=== PATIENT | female | born 1985 | race Two or more races ===

== ENCOUNTER 2024-12-15 19:05 | Emergency (ER) | payer MEDICARE, SELFPAY ==
[2024-12-15 19:27] VITALS: BP 132/67; PULSE 74; RESP 20; TEMP 36.1; O2SAT 100; BMI 41.9
--- NOTE | 2024-12-15 19:28 | ED_ITS ---
HPI - General Adult General Chief complaint: Abdominal Pain Stated complaint: cramping, 3rd trimester of preg, blood in placenta Time Seen by Provider: 12/16/24 00:19 Source: patient Mode of arrival: ambulatory Limitations: no limitations History of Present Illness ED Provider: Dr. Wilton Wayne HPI narrative: 39-year-old female , 11 weeks 3 days based on LMP 09/27/2024 with a past medical history of multiple pulmonary emboli on chronic Lovenox therapy, asthma, hypothyroidism, liver/kidney failure at the end of her last July 2023 requiring at 37 weeks, Rh negative blood type who presents emergency department for evaluation of constant, 01/15, left lower abdominal cramping x2 days associated with nausea but no vomiting. The patient lives in [place] she is in his area for proximally 1 week. She states that 2 weeks ago she developed similar cramping and was seen at a hospital in [place]. She had an ultrasound which revealed a single intrauterine with ?bleeding around the ?. The patient is Rh negative and she states she had 2 doses of RhoGAM IM. She denied fever, chills, lightheadedness, dizziness. She denied vaginal bleeding or vaginal discharge. She denied urinary frequency, urgency or dysuria. Related Data Allergies Allergy/AdvReac Type Severity Reaction Status Date / Time diphenhydramine (From Allergy Agitated Verified 12/15/24 19:31 Benadryl) ketorolac Allergy Abdominal Verified 12/15/24 19:31 Pain Seafood AdvReac Severe SEVERE Uncoded 01/23/20 15:24 NAUSEA WITH ANY KIND OF SEAFOOD Review of Systems 2 Review of Systems: Yes all other systems are reviewed and are negative PMFSH Past Medical History [facility] Narrative: Social history: She lives in [place]. 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 She states that she is going to be in this area for proximally 1 week. She vapes tobacco products. She denies alcohol use. She denies drug use. Social History Social History Advance Directives: No Advance Directives Information Provided: No Do you have a plan to hurt others: No Plan Physical Exam ED Vital Signs: Vital Signs - 24 hr 12/15/24 19:27 12/16/24 01:18 Temperature 96.9 F 97.9 F Pulse Rate 74 66 Respiratory Rate 20 16 Blood Pressure 132/67 112/52 L Pulse Oximetry 100 100 Oxygen Delivery Method Room Air Room Air BMI result Body Mass Index 41.9 Vital signs were normal Exam: General: Awake, alert in no distress, weight 110.8 kg. Elevated BMI 41.9 kg per m2 Head: Normocephalic, atraumatic EENT: PERRL, Lids normal, sclera normal, conjunctiva normal, nose normal , ears normal, throat without erythema or exudates Neck: Supple, no adenopathy Lung: breath sounds symmetric, no wheezing, rales or rhonchi Chest: symmetric movement, nontender Heart: regular rate and rhythm, normal S1, S2 no murmurs or rubs Abdomen: soft, obese, mild to moderate left lower quadrant tenderness, no rebound, normoactive bowel sounds: : Patient refused speculum exam Back: no vertebral tenderness, no CVAT Extremities: no deformities, moves all extremities symmetrically Neuro: Awake, alert, oriented, normal speech, cranial nerves intact, moves all extremities symmetrically Psych: Pleasant, cooperative Course Course Course Narrative: Rapid medical examination performed in triage by Eloisa Rider PA-C. Patient is a 39 year old assigned female at presenting to the emergency department with lower abdominal cramping / pain. Patient states that she is early into her 10th and is having abdominal pain. Detailed physical exam and review of systems are deferred to the vat packer. Labs ordered. Patient placed back in the waiting room pending room availability and results. Medical Decision Making Medical Decision Making MDM Narrative: 39-year-old female (1 TAB), 11 weeks 3 days based on LMP 09/27/2024 with a past medical history of multiple pulmonary emboli on chronic Lovenox therapy, asthma, hypothyroidism, liver/kidney failure at the end of her last July 2023 requiring at 37 weeks, Rh negative blood type who presents emergency department for evaluation of constant, 9/10, left lower abdominal cramping x2 days associated with nausea but no vomiting. The patient lives in [place] and she is in his area for proximally 1 week. She states that 2 weeks ago, she developed similar cramping and was seen at a hospital in [place]. She had an ultrasound which revealed a single intrauterine with ?bleeding around the ?. The patient is Rh negative and she states she had 2 doses of RhoGAM IM. She denied fever, chills, lightheadedness, dizziness. She denied vaginal bleeding or vaginal discharge. She denied urinary frequency, urgency or dysuria. Vital signs were normal. Exam revealed left lower quadrant tenderness otherwise was unremarkable. Patient refused speculum exam. Differential diagnosis: ?Includes but is not limited to threatened spontaneous , abdominal pain with , ectopic , anemia, electrolyte abnormalities Course: My independent interpretation patient's laboratory evaluation is as follows: WBC was normal 6600. Normal H&H of 12.4 and 38. Low platelet count 66,000. Chloride elevated 109. BUN low 17 with a normal creatinine. LFTs were normal. Quantitative beta-hCG was 90,523. An ectopic is unlikely, since the patient had an ultrasound 2 weeks prior in [place] that showed an intrauterine . At this time, I do not have ultrasound available for non-ectopic OB studies. We also do not have gynecology coverage. Therefore I contacted [facility] and did discuss the patient's presentation with the covering OBGYN Chief Resident. The Chief Resident did discuss the patient's presentation and low platelet count with their attending physician. In their opinion, the low platelet count was not related to the and since the was not viable they could not accept the patient in transfer to the OBGYN service. The chief resident felt that the patient required a medical workup to determine if the low platelet count was related to a hematologic condition versus heparin induced (Lovenox) thrombocytopenia. The [facility] transfer line did state that they could put the patient on a waiting list for a medical bed but it could take 1-2 days. Unfortunately, I could not keep this patient in the our emergency department given the possibility of a life threatening uterine bleed secondary to Lovenox and thrombocytopenia. I did discuss this with the patient and I offered to call [facility] to see if they could accept the patient in transfer. After a discussion with the patient and the patient's sister over the phone, the patient decided to leave the emergency department against medical advice and to seek care at [facility]. Admission/Observation Consideration of admission/observation: Escalation of care including admission/observation considered (Yes) Consult Healthcare Provider Management of the patient was discussed with: Signal Repairer ([facility] OBGYN chief resident) Lab Data MDM Lab Attestation statement: I reviewed the patient's lab results. 12/15/24 20:17 12/15/24 20:17 Labs: Lab Results 12/15/24 Range/Units 20:17 WBC 6.6 (4.8-10.8) X10*3/uL RBC 4.50 (4.20-5.50) X10*6/uL Hgb 12.4 (12.0-16.0) g/dl Hct 38.0 (37.0-47.0) % MCV 84.4 (80.0-98.0) fL MCH 27.6 (27.0-33.0) pg MCHC 32.6 (31.0-35.0) g/dl RDW 15.1 (11.0-16.0) % Plt Count 66 L (160-400) X10*3/uL MPV 9.7 (9.4-12.3) fL Immature Gran % (Auto) 0.2 (0.0-0.4) % Neut % (Auto) 67.2 (45-73) % Lymph % (Auto) 27.2 (20-40) % [place] % (Auto) 4.2 (2-11) % Eos % (Auto) 0.9 (0-4) % Baso % (Auto) 0.3 (0-2) % Lymph # (Auto) 1.8 (1.2-4.9) X10*3/uL [place] # (Auto) 0.3 (0.1-1.2) X10*3/uL Eos # (Auto) 0.1 (0.0-0.4) X10*3/uL Baso # (Auto) 0.0 (0.0-0.2) X10*3/uL Abs Immat Gran (auto) 0.01 (0.00-0.03) X10*3/uL Absolute Neuts (auto) 4.4 (2.0-8.3) x10*3/uL Absolute Nucleated RBC 0.000 (0.0-0.012) X10*3/uL Nucleated RBC % (auto) 0.0 (0.0-0.2) /100WBC Smear Tech's Comments VERIFIED Sodium 135 (135-145) mmol/L Potassium 4.0 (3.3-5.1) mmol/L Chloride 109 H (96-108) mmol/L Carbon Dioxide 17 L (22-29) mmol/L Anion Gap 13 (12-20) BUN 11 (9-16) mg/dL Creatinine 0.84 (0.5-1.4) mg/dL Estim Creat Clear Calc 107.3 Estimated GFR > 60 Random Glucose 86 (60-115) mg/dL Calcium 9.2 (8.4-10.2) mg/dL Magnesium 2.1 (1.6-2.6) mg/dL Total Bilirubin 0.2 (0.0-1.0) mg/dL AST 20 (5-31) U/L ALT 6 (0-31) U/L Alkaline Phosphatase 63 (39-117) U/L Total Protein 7.2 (6.5-8.0) g/dL Albumin 3.7 (3.5-5.0) g/dL Beta HCG, Quant 97903 mIU/mL Chronic Conditions Patient?s care impacted by: Other (Recurrent pulmonary emboli treated with Lovenox) Discharge Plan Discharge Clinical Impression: First trimester , Abdominal pain during intrauterine , Rh negative status during , Thrombocytopenia, Current use of anticoagulant therapy Patient Disposition: Left Against Medical Advice Additional Instructions: You told me that you had an OBGYN ultrasound 2 weeks prior in [place] and you were told that you had a single intrauterine with bleeding around the . You had a comprehensive metabolic panel which revealed no abnormalities in your kidney function or your liver tests. You also told me that your Rh negative in you receive to [facility] in [place]. Given these facts I do not think that you have an in your fallopian tubes (ectopic ) Your quantitative beta-hCG (blood test) was 90,523. You had a complete blood count which revealed a normal hematocrit and hemoglobin of 12.4 and 38.0. Your platelet count was low at 66,000. This has concerning and may be related to your , a hematologic condition or your Lovenox treatment for your recurrent pulmonary emboli. I did talk to the Gynecology Chief Resident at [facility] and they stated that your low platelet count was probably not related to the but they felt that you need a medical workup and a hematology workup to determine the cause of your low platelet count. [facility] does not have a medical bed at this time but the property coordinator stated that a bed may be available in 1-2 days. We are not able to keep you in our emergency department for that period of time. Therefore I need to transfuse 2 different hospital since we do not have gynecology coverage in her hospitalist will not admit patient's without gynecology coverage. I offered to call [facility] to see if they can accept you in transfer. After my discussion with you and your sister, you decided to leave [facility] and seek care at [facility] therefore you are being discharged against medical advice. Stand Alone Forms: Against Medical Advice Interventions: ED Discharge Assessment Last Done: 12/16/24 02:01 Discharge Date/Time: 12/16/24 02:02 Print Language: Sinhala
[2024-12-15 20:28] LABS: Hematocrit 38.0 % (37.0-47.0); Hemoglobin 12.4 g/dl (12.0-16.0); Imm Gran Abs Auto 0.01 X10*3/uL (0.00-0.03); Imm Gran Pct Auto 0.2 % (0.0-0.4); Lymphocytes Absolute Auto 1.8 X10*3/uL (1.2-4.9); MANUAL DIFF FLAG SCAN; Mean Corpuscular HGB Conc 32.6 g/dl (31.0-35.0); Mean Corpuscular Hemoglobin 27.6 pg (27.0-33.0); Mean Corpuscular Volume 84.4 fL (80.0-98.0); NRBC Abs Auto 0.000 X10*3/uL (0.0-0.012); NRBC Pct Auto 0.0 /100WBC (0.0-0.2); PLT CLUMP 1; Red Blood Count 4.50 X10*6/uL (4.20-5.50); SCAN SMEAR FLAG 1
[2024-12-15 21:01] LABS: Platelet Count 66 X10*3/uL (160-400); White Blood Count 6.6 X10*3/uL (4.8-10.8)
[2024-12-15 21:02] LABS: Alanine Aminotransferase 6 U/L (0-31); Albumin Level 3.7 g/dL (3.5-5.0); Alkaline Phosphatase 63 U/L (39-117); Anion Gap 13 (12-20); Aspartate Amino Transferase 20 U/L (5-31); Blood Urea Nitrogen 11 mg/dL (9-16); Calcium 9.2 mg/dL (8.4-10.2); Carbon Dioxide 17 mmol/L (22-29); Chloride 109 mmol/L (96-108); Creatinine Clr Calc Pharmacy 107.3; Estimated Glomerular Filt Rate > 60; Magnesium 2.1 mg/dL (1.6-2.6); Potassium 4.0 mmol/L (3.3-5.1); Sodium 135 mmol/L (135-145); Total Protein 7.2 g/dL (6.5-8.0)
[2024-12-16 01:18] VITALS: BP 112/52; PULSE 66; RESP 16; TEMP 36.6; O2SAT 100
[2024-12-16 02:01] VITALS: BP 112/52; PULSE 66; RESP 16; TEMP 36.6; O2SAT 100
== END 2024-12-16 02:02 | disposition left against medical advice (07) ==
PROVIDERS: Physician Assistant Medical; Emergency Provider Emergency Medicine Emergency Medical Services
DX: O36.0910 Maternal care for other rhesus isoimmunization, first trimester, not applicable or unspecified (principal); R10.2 Pelvic and perineal pain; R10.32 Left lower quadrant pain; R11.2 Nausea with vomiting, unspecified; Z79.01 Long term (current) use of anticoagulants; Z79.899 Other long term (current) drug therapy
CPT/HCPCS: 36415; 80053; 83735; 84702; 85025; 99283